=== PATIENT | male | born 1965 | race Caucasian/White ===

== ENCOUNTER 2017-07-03 12:31 | Observation (INO) ==
[2017-07-03] MEDS ORDERED: ASPIRIN 325 MG TABLET PO STA (12:54)
[2017-07-03] MEDS ORDERED: hydrALAZINE 20 MG/1 ML VIAL IV STA (12:55)
[2017-07-03 13:21] LABS: Basophils # 0.1 10*3/uL (0.0-0.2); Basophils % 0.9 % (0.0-0.8); Eosinophils # 0.1 10*3/uL (0.0-0.87); Hematocrit 44.7 VOL% (42.0-52.0); Hemoglobin 15.6 GM/DL (14.0-18.0); Immature Granulocytes % 0.3 %; Immature Granulocytes Absolute 0.02 #; Lymphocytes # 1.4 10*3/uL (1.4-4.0); Lymphocytes % 21.2 % (21.2-54.2); Mean Corpuscular HGB Conc 34.9 GM/DL (32-36); Mean Corpuscular Hemoglobin 29 PG (27-34); Mean Corpuscular Volume 82.5 FL (87-102); Mean Platelet Volume 11.7 FL (9.6-12.0); Monocytes # 0.4 10*3/uL (0.11-0.8); Monocytes % 5.9 % (1.7-12.7); Neutrophils # 4.8 10*3/uL (1.4-7.4); Neutrophils % 70.7 % (38.7-73.9); Platelet Count 249 T/CUMM (130-400); Red Blood Count 5.42 MC/CUMM (3.8-5.5); Red Cell Distribution Width 13.9 % (9.3-17.3); White Blood Count 6.8 T/CUMM (4-12)
[2017-07-03 13:47] LABS: Albumin 4.6 G/DL (3.4-5.0); Bilirubin,Total 0.4 MG/DL (0.2-1.0); Calcium 9.4 MG/DL (8.5-10.1); Osmolality,Calculated 280.3 MOS/KG (273-304); Total Protein 7.8 G/DL (6.4-8.3)
[2017-07-03 14:04] LABS: Apearance,Urine CLEAR (Clear); Bilirubin,Urine Negative (Negative); Blood, Urine Negative (Negative); Glucose,Urine (UA) Negative (Negative); Ketones,Urine Negative (Negative); Nitrite,Urine Negative (Negative); Protein,Urine Negative; RBC,Urine <1 /HPF (0-4); Urine Color Colorless (Yellow); Urine Specific Gravity 1.002 (1.001-1.035); Urine Urobilinogen < 2.0 EU/DL (0.2-1.0); WBC,Urine <1 /HPF (0-6)
[2017-07-03 14:11] LABS: Barbiturates Screen,Urine Negative (Negative); Benzodiazepines Screen,Urine Negative (Negative); Cannabinoid Screen,Urine Positive (Negative); Opiate Screen,Urine Negative (Negative); Phencyclidine Screen,Urine Negative (Negative)
[2017-07-03] MEDS ORDERED: ASPIRIN 325 MG TABLET ONE (14:20)
[2017-07-03] MEDS ORDERED: hydrALAZINE 20 MG/1 ML VIAL ONE ×2 (14:20→14:59)
[2017-07-03] MEDS ORDERED: ONDANSETRON 4 MG/2 ML VIAL ONE (15:41)
[2017-07-03] MEDS ORDERED: fentaNYL 100 MCG/2 ML VIAL ONE (15:41)
[2017-07-03] MEDS ORDERED: MAGNESIUM SULF RIDER 2 GM in PREMIX 1 EACH IV PRN ×2 (16:22→17:31)
[2017-07-03] MEDS ORDERED: ONDANSETRON 4 MG/2 ML VIAL IV PRN ×2 (16:22→17:31)
[2017-07-03] MEDS ORDERED: ZALEPLON 5 MG CAPSULE PO PRN (16:22)
[2017-07-03] MEDS ORDERED: MAGNESIUM SULF RIDER 4 GM in PREMIX 1 EACH IV PRN ×2 (16:22→17:31)
[2017-07-03] MEDS ORDERED: DOCUSATE SODIUM 100 MG CAPSULE PO PRN (16:22)
[2017-07-03] MEDS ORDERED: ENOXAPARIN 40 MG/0.4 ML SYRINGE SUBCUT SCH ×2 (16:30→17:31)
[2017-07-03] MEDS ORDERED: LISINOPRIL 10 MG TABLET PO STA (16:48)
[2017-07-03] MEDS ORDERED: LISINOPRIL 10 MG TABLET ONE (17:04)
[2017-07-03] MEDS ORDERED: cloNIDine 0.1 MG TABLET PO PRN (17:31)
[2017-07-03] MEDS ORDERED: hydroCHLOROthiazide 25 MG TABLET PO SCH (17:31)
[2017-07-03] MEDS ORDERED: SODIUM CHLORIDE 0.9% 1,000 ML IV SCH (17:31)
[2017-07-03] MEDS ORDERED: LISINOPRIL 10 MG TABLET PO SCH (17:31)
[2017-07-03] MEDS ORDERED: ACETAMINOPHEN 325 MG TABLET PO PRN (17:31)
[2017-07-03] MEDS ORDERED: LORazepam 2 MG/1 ML VIAL IV STA (17:31)
[2017-07-03] MEDS: hydroCHLOROthiazide 25 MG TABLET PO SCH (17:58)
[2017-07-03] MEDS: PANTOPRAZOLE 40 MG TABLET PO SCH (17:59)
[2017-07-03] MEDS: LORazepam 1 MG TABLET PO SCH (20:52)
[2017-07-03] MEDS: LISINOPRIL 10 MG TABLET PO SCH (20:52)
[2017-07-03] MEDS: GABAPENTIN 300 MG CAPSULE PO SCH (20:53)
[2017-07-03] MEDS: METOPROLOL TARTRATE 50 MG TABLET PO SCH (22:45)
[2017-07-04 04:45] LABS: Basophils # 0.1 10*3/uL (0.0-0.2); Basophils % 1.2 % (0.0-0.8); Eosinophils # 0.2 10*3/uL (0.0-0.87); Eosinophils % 2.6 % (0.00-10.9); Hematocrit 43.2 VOL% (42.0-52.0); Immature Granulocytes % 0.2 %; Immature Granulocytes Absolute 0.01 #; Lymphocytes # 2.2 10*3/uL (1.4-4.0); Lymphocytes % 36.6 % (21.2-54.2); Mean Corpuscular HGB Conc 34.7 GM/DL (32-36); Mean Corpuscular Hemoglobin 29 PG (27-34); Mean Corpuscular Volume 82.9 FL (87-102); Mean Platelet Volume 11.9 FL (9.6-12.0); Monocytes # 0.4 10*3/uL (0.11-0.8); Monocytes % 6.9 % (1.7-12.7); Neutrophils # 3.2 10*3/uL (1.4-7.4); Neutrophils % 52.5 % (38.7-73.9); Platelet Count 229 T/CUMM (130-400); Red Blood Count 5.21 MC/CUMM (3.8-5.5); Red Cell Distribution Width 14.1 % (9.3-17.3); White Blood Count 6.1 T/CUMM (4-12)
[2017-07-04 05:38] LABS: Albumin 3.8 G/DL (3.4-5.0); Bilirubin,Total 0.8 MG/DL (0.2-1.0); Calcium 8.9 MG/DL (8.5-10.1); Potassium 3.6 MMOL/L (3.5-5.1); Risk Ratio 8.83; Total Protein 6.6 G/DL (6.4-8.3); VLDL CHOLESTEROL 36.8 MG/DL
[2017-07-04] MEDS ORDERED: ASPIRIN EC 81 MG TABLET PO SCH (09:00)
[2017-07-04] MEDS: METOPROLOL TARTRATE 50 MG TABLET PO SCH (09:40)
[2017-07-04] MEDS: LISINOPRIL 10 MG TABLET PO SCH (09:40)
[2017-07-04] MEDS: LORazepam 1 MG TABLET PO SCH (09:41)
[2017-07-04] MEDS: PANTOPRAZOLE 40 MG TABLET PO SCH (09:41)
[2017-07-04] MEDS: hydroCHLOROthiazide 25 MG TABLET PO SCH (09:41)
[2017-07-04] MEDS: GABAPENTIN 300 MG CAPSULE PO SCH (09:41)
[2017-07-04] MEDS ORDERED: EZETIMIBE 10 MG TABLET PO SCH (10:00)
[2017-07-04 11:38] VITALS: BP 148/93
[2017-07-05] MEDS ORDERED: METOPROLOL SUCCINATE XL 50 MG TABLET PO SCH (09:00)
== END 2017-07-04 12:56 | disposition home or self-care (01) ==
LOC: N.ED 12:31 → N.EDINP 12:31 → N.TELES 17:24
PROVIDERS: ADMIT Internal Medicine Clinical Cardiac Electrophysiology; ATTEND Internal Medicine Clinical Cardiac Electrophysiology